=== PATIENT | female | born 1950 | race Caucasian/White ===

== ENCOUNTER → 2016-12-20 | Outpatient (CLI) | payer OTHER, BC | LOC: RAD 15:51 | DX: M17.11 Unilateral primary osteoarthritis, right knee (principal); M47.896 Other spondylosis, lumbar region; M47.892 Other spondylosis, cervical region; M54.41 Lumbago with sciatica, right side; G89.29 Other chronic pain; M54.2 Cervicalgia ==

== ENCOUNTER 2019-03-27 09:58 | Emergency (ER) | payer OTHER, BC ==
[~2019-03-27] VITALS: Ht 165.1 cm; Wt 71.2 kg
[2019-03-27] MEDS ORDERED: LISINOPRIL20 MG PO (10:05)
[2019-03-27] MEDS ORDERED: SIMVASTATIN40 MG PO (10:05)
[2019-03-27] MEDS ORDERED: CELEBREX 200 M200 M1 PO (10:06)
[2019-03-27] MEDS ORDERED: ASPIR 8181 MG PO (10:06)
[2019-03-27] MEDS ORDERED: CLARITIN10 MG PO (10:06)
[2019-03-27] MEDS ORDERED: VENLAFAXINE HCL50 MG PO (10:07)
[2019-03-27 10:15] LABS: MCHC 33.9 g/dL (28.0-37.0)
[2019-03-27 10:17] LABS: ABSOLUTE NEUTROPHILS 7.3 thou/uL (1.4-8.2); BASOPHILS 0.3 % (0.0-2.0); EOSINOPHILS 0.9 % (0.0-3.0); HEMATOCRIT 38.4 % (37.0-47.0); LYMPHOCYTES 13.2 % (24.0-44.0); MCH 29.4 pg (26.0-34.0); MCV 86.8 fL (80.0-100.0); MONOCYTES 6.7 % (1.0-8.0); PLATELET COUNT 290 thou/uL (150-400); POLYS 78.9 % (36.0-66.0); RBC 4.42 mil/uL (4.20-5.00); RDW 14.4 % (10.5-14.5); WBC 9.2 thou/uL (4.0-11.0)
[2019-03-27 10:22] LABS: ANION GAP 9 mmol/L (7-16); BUN 21 mg/dL (7-18); CALCIUM 9.5 mg/dL (8.5-10.1); CHLORIDE 101 mmol/L (98-107); CO2 27 mmol/L (21-32); CREATININE 0.9 mg/dL (0.6-1.0); GLUCOSE 115 mg/dL (74-106); POTASSIUM 3.9 mmol/L (3.5-5.1); SODIUM 137 mmol/L (136-145)
[2019-03-27 10:32] LABS: ALBUMIN 4.3 g/dL (3.4-5.0); MAGNESIUM 2.2 mg/dL (1.8-2.4); SGOT 15 U/L (15-37); SGPT 22 U/L (30-65); TOTAL BILIRUBIN 0.5 mg/dL (<0.1-1.0); TOTAL PROTEIN 7.9 g/dL (6.4-8.2); TROPONIN-I <0.06 ng/mL (<0.06)
[2019-03-27 12:45] VITALS: BP 141/80
--- NOTE | 2019-03-29 08:21 | EKG ---
[place] [address] [facility] [employer] [place] [address] ELECTROCARDIOGRAM REPORT Name: SIRISHA TELLES [id number] Admission: 03/27/19 Attend Phys: Discharge: 03/27/19 Date of : 50 Report #: [id number] THIS REPORT FOR: //name// [facility] ED Test Date: 2019-03-27 Test Time: 10:00:05 Pat Name: SIRISHA TELLES Department: Room: Gender: F [employer] Operator: YASMIN : 1950 Requested By: Madi Juarez Order Number: [id number] MD: Ryder Dinh Measurements Intervals [place] Rate: 71 P: 23 RI: 160 QRS: -41 QRSD: 98 T: 58 QT: 404 QTc: 439 Interpretive Statements Sinus rhythm Left axis deviation RSR' in V1 or V2, probably normal variant No previous ECG available for comparison Electronically Signed On 03-29-2019 8:21:05 CDT by Ryder Dinh [email or web address] <ELECTRONICALLY SIGNED> By: Ryder Dinh MD, [facility] 03/29/19 0821 [address] [facility] Ryder Dinh MD, FACC /EPI
== END 2019-03-27 12:45 | disposition home or self-care (01) ==
LOC: ER 09:58
PROVIDERS: Emergency Medicine
DX: R07.89 Other chest pain (principal); M19.90 Unspecified osteoarthritis, unspecified site; Z88.2 Allergy status to sulfonamides; Z96.643 Presence of artificial hip joint, bilateral

== ENCOUNTER → 2019-04-17 | Outpatient (CLI) | payer OTHER, BC ==
[~2019-04-17] MED LIST: ASPIR 8181 MG PO; CELEBREX 200 M200 M1 PO; CLARITIN10 MG PO; LISINOPRIL20 MG PO; SIMVASTATIN40 MG PO; VENLAFAXINE HCL50 MG PO
== END ==
LOC: CAT 09:08
DX: K85.90 Acute pancreatitis without necrosis or infection, unspecified (principal)